=== PATIENT | female | born 1995 | race Hispanic/Latino ===

== ENCOUNTER 2017-07-19 23:53 | Observation (INO) | payer MEDICAID ==
[~2017-07-19] VITALS: Ht 162.6 cm; Wt 67.6 kg
[2017-07-20 00:38] LABS: BILIRUBIN,URINE Negative (NEGATIVE); GLUCOSE, URINE (UA) Negative (NEGATIVE); KETONES,URINE Negative (NEGATIVE); LEUKOCYTE ESTERASE ,URINE Negative (NEGATIVE); NITRATE,URINE Negative (NEGATIVE); OCCULT BLOOD,URINE Large (NEGATIVE); PROTEIN,URINE POS 1+ (NEGATIVE); UROBILINOGEN,URINE 0.2 mg/dL (0.2-1.0)
[2017-07-20 00:41] LABS: APPEARANCE,URINE TURBID (CLEAR); COLOR,URINE RED (YELLOW)
[2017-07-20 00:42] LABS: BACTERIA,URINE Rare /HPF (None Seen); MUCUS,URINE Few LPF (None Seen); RBC,URINE TNTC /HPF (0-1); SQUAMOUS EPITHELIAL CELL,UR Few /LPF (0-2)
[2017-07-20] MEDS ORDERED: MAGNESIUM SULFATE 1,000 ML IV PRN (00:58)
[2017-07-20] MEDS ORDERED: MAGNESIUM 4GM PREMIX 100ML 100 ML IV SCH (01:00)
[2017-07-20] MEDS ORDERED: MEPERIDINE-PF 25 MG/ML SYG IVP PRN (01:00)
[2017-07-20] MEDS ORDERED: CALCIUM GLUCONATE 1 GM/10 ML VIAL IV PRN (01:00)
[2017-07-20] MEDS ORDERED: MAGNESIUM 4GM PREMIX 100ML 100 ML IV ONE (01:25)
[2017-07-20] MEDS ORDERED: AMPICILLIN 2GM+NS 100ML 100 ML IV ONE (01:26)
[2017-07-20] MEDS ORDERED: MAGNESIUM SULFATE 1,000 ML IV ONE (01:26)
[2017-07-20] MEDS ORDERED: MEPERIDINE-PF 25 MG/ML SYG ONE (01:53)
[2017-07-20 03:22] LABS: HEMATOCRIT 28.5 % (36-48); MEAN CORPUSCULAR HEMOGLOBIN 22.1 pg (27.0-33.0); MEAN CORPUSCULAR HGB CONC 32.6 g/dL (32.0-36.0); MEAN CORPUSCULAR VOLUME 67.8 fL (79-99); NUCLEATED RED BLOOD CELLS 0.1 % (0.0-0.19); PLATELET COUNT (AUTO) 160 K/uL (130-400); RED BLOOD CELL COUNT(AUTO) 4.21 MIL/uL (4.00-5.50); RED CELL DISTRIBUTION WIDTH 17.2 % (11.0-15.5); WHITE BLOOD COUNT (AUTO) 8.8 K/uL (4.8-10.8)
[2017-07-20 04:22] LABS: AMPHET/METH SCREEN,URINE NEGATIVE (NEGATIVE); BARBITURATE SCREEN, URINE NEGATIVE (NEGATIVE); BENZODIAZEPINES SCREEN,URINE NEGATIVE (NEGATIVE); CANNABINOID SCREEN,URINE NEGATIVE (NEGATIVE); COCAINE SCREEN,URINE NEGATIVE (NEGATIVE); OPIATE SCREEN,URINE NEGATIVE (NEGATIVE); PHENCYCLIDINE SCREEN,URINE NEGATIVE (NEGATIVE)
[2017-07-20] MEDS ORDERED: ACETAMINOPHEN-CODEINE 300/30MG TAB PO PRN (06:45)
[2017-07-20] MEDS: AMPICILLIN 2GM+NS 100ML 100 ML IV SCH ×2 (07:49→20:42)
[2017-07-20] MEDS ORDERED: CEFTRIAXONE 1GM/D5W 50ML 50 ML IV SCH (08:00)
[2017-07-20] MEDS ORDERED: PROMETHAZINE HCL 25 MG/ML 1ML AMPULE IM PRN (08:00)
[2017-07-20] MEDS ORDERED: ACETAMINOPHEN EXTRA STRENGTH 500 MG TABLET PO PRN (08:15)
[2017-07-20] MEDS ORDERED: PROMETHAZINE HCL 25 MG/ML 1ML AMPULE IM ONE (08:42)
[2017-07-20] MEDS ORDERED: CEFTRIAXONE SODIUM 1 GM IV SCH (09:00)
[2017-07-20 10:15] LABS: RAPID PLASMA REAGIN NONREACTIVE (NONREACTIVE)
[2017-07-20 10:47] LABS: ALBUMIN 2.3 g/dL (3.5-5.0); BILIRUBIN,DIRECT 0.2 mg/dL (0.0-0.3); BILIRUBIN,TOTAL 0.4 mg/dL (0.2-1.0); TOTAL PROTEIN, SERUM 7.1 g/dL (6.0-8.3)
[2017-07-20] MEDS: LACTATED RINGERS 1000ML 1,000 ML IV SCH (10:51)
[2017-07-20 12:07] LABS: HEMATOCRIT 26.7 % (36-48)
[2017-07-20] MEDS ORDERED: MEPERIDINE-PF 50 MG/ML SYG IVP SCH (18:30)
[2017-07-20] MEDS ORDERED: MEPERIDINE-PF 50 MG/ML SYG ONE (18:37)
[2017-07-21] MEDS: LACTATED RINGERS 1000ML 1,000 ML IV SCH (02:55)
[2017-07-21] MEDS: AMPICILLIN 2GM+NS 100ML 100 ML IV SCH ×2 (02:56→09:16)
[2017-07-21 11:14] LABS: HEPATITIS Bs ANTIGEN SCREEN P Negative (Negative)
== END 2017-07-21 13:38 | disposition home or self-care (01) ==
LOC: EDH 23:53 → LDH 23:54 → UNDODISOB 07-21 09:54
PROVIDERS: ADMIT Obstetrics & Gynecology; ATTEND Obstetrics & Gynecology
DX: O62.9 Abnormality of forces of labor, unspecified (principal); Z3A.35 35 weeks gestation of pregnancy
CPT/HCPCS: 36415; 76700; 80076; 80305; 81001; 82150; 83690; 85027; 86592; 86701; 86850; 86900; 86901; 87088; 87340; 87390; 96361; 96365; 96372; 96375; 96376; 99285; A4314; G0378 ×38; J0290 ×6; J0696; J2175 ×3; J2550 ×2; J3475 ×3; J7120

== ENCOUNTER 2017-08-14 21:38 | Inpatient (IN) | payer MEDICAID ==
[~2017-08-14] VITALS: Ht 157.5 cm; Wt 72.1 kg
[2017-08-14] MEDS ORDERED: LACTATED RINGERS 1000ML 1,000 ML IV PRN (22:06)
[2017-08-14 22:11] LABS: APPEARANCE,URINE Clear (CLEAR); BILIRUBIN,URINE Negative (NEGATIVE); COLOR,URINE Dark Yellow (YELLOW); GLUCOSE, URINE (UA) Negative (NEGATIVE); KETONES,URINE Negative (NEGATIVE); LEUKOCYTE ESTERASE ,URINE Moderate (NEGATIVE); NITRATE,URINE Negative (NEGATIVE); OCCULT BLOOD,URINE Negative (NEGATIVE); PROTEIN,URINE Negative (NEGATIVE)
[2017-08-14 22:20] LABS: AMPHET/METH SCREEN,URINE NEGATIVE (NEGATIVE); BARBITURATE SCREEN, URINE NEGATIVE (NEGATIVE); BENZODIAZEPINES SCREEN,URINE NEGATIVE (NEGATIVE); CANNABINOID SCREEN,URINE NEGATIVE (NEGATIVE); COCAINE SCREEN,URINE NEGATIVE (NEGATIVE); OPIATE SCREEN,URINE NEGATIVE (NEGATIVE); PHENCYCLIDINE SCREEN,URINE NEGATIVE (NEGATIVE)
[2017-08-14 22:23] LABS: HEMATOCRIT 31.3 % (36-48); MEAN CORPUSCULAR HEMOGLOBIN 21.5 pg (27.0-33.0); MEAN CORPUSCULAR HGB CONC 33.1 g/dL (32.0-36.0); PLATELET COUNT (AUTO) 217 K/uL (130-400); RED BLOOD CELL COUNT(AUTO) 4.81 MIL/uL (4.00-5.50); RED CELL DISTRIBUTION WIDTH 18.6 % (11.0-15.5); WHITE BLOOD COUNT (AUTO) 9.4 K/uL (4.8-10.8)
[2017-08-14] MEDS ORDERED: LACTATED RINGERS 1000ML 1,000 ML IV ONE (22:23)
[2017-08-14] MEDS ORDERED: AMPICILLIN 2GM+NS 100ML 100 ML IV ONE (22:23)
[2017-08-14] MEDS ORDERED: OXYTOCIN 10 USP UNITS/ML ONE (22:30)
[2017-08-14 22:34] LABS: BACTERIA,URINE Moderate /HPF (None Seen); RBC,URINE 0-1 /HPF (0-1)
[2017-08-14 22:35] VITALS: BP 126/77
[2017-08-14 22:35] LABS: MUCUS,URINE Moderate LPF (None Seen); SQUAMOUS EPITHELIAL CELL,UR Moderate /LPF (0-2)
[2017-08-14] MEDS ORDERED: NALOXONE HCL 0.4 MG/1 ML ML IV PRN (22:45)
[2017-08-14] MEDS ORDERED: AMPICILLIN 2GM+NS 100ML 100 ML IV SCH (22:45)
[2017-08-14] MEDS ORDERED: EPHEDRINE SULFATE 50 MG/ML AMPULE IVP PRN (22:45)
[2017-08-14] MEDS ORDERED: ROPIVACAINE 0.2%200ML EPIDURAL 200 ML EP SCH (22:45)
[2017-08-14] MEDS ORDERED: LACTATED RINGERS 500 ML 500 ML IV PRN (22:45)
[2017-08-15] VITALS (12 sets, daily range): BP systolic 108–136; BP diastolic 62–95
[2017-08-15] MEDS: OXYTOCIN-LR 20 UNITS/1000 ML 1,000 ML IV SCH ×2 (01:06→05:23)
[2017-08-15] MEDS ORDERED: WITCH HAZEL 1 PAD TP PRN (01:30)
[2017-08-15] MEDS ORDERED: MEASLES/MUMPS/RUBELLA VACCINE, LIVE 0.5 ML/VIAL SQ PRN (01:30)
[2017-08-15] MEDS ORDERED: LANOLIN 30GM OINTMENT TP PRN (01:30)
[2017-08-15] MEDS ORDERED: BENZOCAINE/LANOLIN/ALOE VERA 60 ML AEROSOL TP PRN (01:30)
[2017-08-15] MEDS ORDERED: DIPH,PERTUSS(ACELL),TET VAC/PF 0.5 ML VIAL IM PRN (01:30)
[2017-08-15] MEDS ORDERED: ACETAMINOPHEN-CODEINE 300/30MG TAB PO PRN (01:30)
[2017-08-15] MEDS ORDERED: ACETAMINOPHEN 325 MG TAB PO PRN (01:30)
[2017-08-15] MEDS ORDERED: HYDROCODONE/ACETAMINOPHEN 5/325 MG TAB PO PRN (01:30)
[2017-08-15] MEDS ORDERED: IBUPROFEN 600 MG TABLET ONE (01:40)
[2017-08-15] MEDS ORDERED: AMPICILLIN 1GM+NS 50ML 50 ML IV SCH (02:45)
[2017-08-15] MEDS ORDERED: OXYTOCIN 10 USP UNITS/ML ONE (05:20)
[2017-08-15 08:12] LABS: RAPID PLASMA REAGIN NONREACTIVE (NONREACTIVE)
[2017-08-15] MEDS: DOCUSATE SODIUM 100 MG CAP PO SCH ×2 (10:01→21:09)
[2017-08-15] MEDS: IBUPROFEN 800 MG TAB PO PRN ×2 (10:04→18:35)
[2017-08-15] MEDS ORDERED: BISACODYL 10 MG SUPP.RECT RC ONE (14:50)
[2017-08-16 03:25] VITALS: BP 131/76
[2017-08-16 05:38] LABS: HEMATOCRIT 25.6 % (36-48); MEAN CORPUSCULAR HEMOGLOBIN 21.1 pg (27.0-33.0); MEAN CORPUSCULAR HGB CONC 31.8 g/dL (32.0-36.0); MEAN CORPUSCULAR VOLUME 66.2 fL (79-99); NUCLEATED RED BLOOD CELLS 0.1 % (0.0-0.19); PLATELET COUNT (AUTO) 230 K/uL (130-400); RED BLOOD CELL COUNT(AUTO) 3.86 MIL/uL (4.00-5.50); RED CELL DISTRIBUTION WIDTH 18.6 % (11.0-15.5); WHITE BLOOD COUNT (AUTO) 8.8 K/uL (4.8-10.8)
[2017-08-16 07:30] LABS: HEPATITIS Bs ANTIGEN SCREEN P Negative (Negative)
[2017-08-16 07:48] VITALS: BP 102/67
[2017-08-16] MEDS: DOCUSATE SODIUM 100 MG CAP PO SCH (09:02)
[2017-08-16] MEDS: IBUPROFEN 800 MG TAB PO PRN (09:03)
[2017-08-16 11:33] VITALS: BP 113/63
[2017-08-16] MEDS ORDERED: FERS325 PO (11:56)
[2017-08-16] MEDS ORDERED: IBUP-2076 PO (11:57)
[2017-08-16] MEDS ORDERED: MEASLES/MUMPS/RUBELLA VACCINE, LIVE 0.5 ML/VIAL SQ SCH (12:48)
== END 2017-08-16 13:50 | disposition home or self-care (01) | DRG 560 ==
LOC: EDH 21:38 → OBSVTOIN 21:39 → LDH 21:39 → WSH 08-15 01:50
PROVIDERS: ADMIT Obstetrics & Gynecology; ATTEND Obstetrics & Gynecology
PROC: 10E0XZZ Delivery of Products of Conception, External Approach (ICD-10-PCS; principal; 2017-08-15)
PROC: 10E0XZZ Delivery of Products of Conception, External Approach (ICD-10-PCS; 2017-08-15)
PROC: 3E0R3BZ Introduction of Anesthetic Agent into Spinal Canal, Percutaneous Approach (ICD-10-PCS; 2017-08-15)
PROC: 00HU33Z Insertion of Infusion Device into Spinal Canal, Percutaneous Approach (ICD-10-PCS; 2017-08-15)
PROC: 3E0234Z Introduction of Serum, Toxoid and Vaccine into Muscle, Percutaneous Approach (ICD-10-PCS; 2017-08-16)
DX: O77.0 Labor and delivery complicated by meconium in amniotic fluid (principal); Z23 Encounter for immunization; Z37.0 Single live birth; Z3A.39 39 weeks gestation of pregnancy
CPT/HCPCS: 36415; 76805; 80305; 81001; 85027; 86592; 86701; 86850; 86900; 86901; 87340; 87390; 90707; A4314; J0290; J2590; J7120

== ENCOUNTER 2018-06-16 22:14 | Emergency (ER) | payer MEDICAID, OTHER ==
[~2018-06-16 22:14] MED LIST: FERS325 PO; IBUP-2076 PO
[2018-06-16] MEDS ORDERED: IBUPROFEN 600 MG TABLET ONE (23:35)
[2018-06-16] MEDS ORDERED: TETANUS/DIPHTHERIA TOXOID [ADULT] 0.5 ML VIAL IM ONE (23:36)
== END 2018-06-16 23:47 | disposition home or self-care (01) ==
LOC: EDH 22:14
DX: S80.02XA Contusion of left knee, initial encounter (principal); S80.01XA Contusion of right knee, initial encounter; S60.512A Abrasion of left hand, initial encounter; S60.511A Abrasion of right hand, initial encounter; F32.9 Major depressive disorder, single episode, unspecified; F41.9 Anxiety disorder, unspecified; Z87.442 Personal history of urinary calculi; W18.39XA Other fall on same level, initial encounter; Y93.89 Activity, other specified; Y92.89 Other specified places as the place of occurrence of the external cause; Y99.8 Other external cause status
CPT/HCPCS: 73562; 90471; 90714

== ENCOUNTER 2018-08-09 23:42 | Emergency (ER) | payer OTHER ==
[2018-08-10 00:46] LABS: BASOPHILS % (AUTO) 0.9 % (0.0-5.0); EOSINOPHILS % (AUTO) 1.4 % (0.0-8.0); HEMATOCRIT 37.9 % (36-48); LYMPHOCYTES % (AUTO) 24.4 % (21.0-51.0); MEAN CORPUSCULAR HEMOGLOBIN 26.9 pg (27.0-33.0); MEAN CORPUSCULAR HGB CONC 34.3 g/dL (32.0-36.0); MEAN CORPUSCULAR VOLUME 78.6 fL (79-99); MONOCYTES % (AUTO) 9.1 % (3.0-13.0); NEUTROPHILS % (AUTO) 64.2 % (40.0-77.0); NUCLEATED RED BLOOD CELLS 0.1 % (0.0-0.19); PLATELET COUNT (AUTO) 305 K/uL (130-400); RED BLOOD CELL COUNT(AUTO) 4.82 MIL/uL (4.00-5.50); RED CELL DISTRIBUTION WIDTH 16.1 % (11.0-15.5)
[2018-08-10 00:47] LABS: APPEARANCE,URINE Cloudy (CLEAR); BACTERIA,URINE Few /HPF (None Seen); BILIRUBIN,URINE Negative (NEGATIVE); COLOR,URINE Yellow (YELLOW); GLUCOSE, URINE (UA) Negative (NEGATIVE); KETONES,URINE Negative (NEGATIVE); LEUKOCYTE ESTERASE ,URINE Moderate (NEGATIVE); MUCUS,URINE Moderate LPF (None Seen); NITRATE,URINE Negative (NEGATIVE); OCCULT BLOOD,URINE Large (NEGATIVE); PROTEIN,URINE POS 1+ (NEGATIVE); SQUAMOUS EPITHELIAL CELL,UR Many /HPF (0-2)
== END 2018-08-10 01:26 | disposition home or self-care (01) ==
LOC: EDH 23:53
DX: O20.0 Threatened abortion (principal); O99.341 Other mental disorders complicating pregnancy, first trimester; F41.8 Other specified anxiety disorders; F32.9 Major depressive disorder, single episode, unspecified; Z87.442 Personal history of urinary calculi; Z3A.01 Less than 8 weeks gestation of pregnancy
CPT/HCPCS: 36415; 76801; 81001; 84702; 85025

== ENCOUNTER 2018-12-10 17:45 | Emergency (ER) | payer SELFPAY ==
[2018-12-10 18:16] LABS: APPEARANCE,URINE Cloudy (CLEAR); BILIRUBIN,URINE Negative (NEGATIVE); COLOR,URINE Dark Yellow (YELLOW); GLUCOSE, URINE (UA) Negative (NEGATIVE); KETONES,URINE 15 mg/dL (NEGATIVE); LEUKOCYTE ESTERASE ,URINE Small (NEGATIVE); NITRATE,URINE Negative (NEGATIVE); OCCULT BLOOD,URINE Negative (NEGATIVE); PH,URINE 6.5 (5.0-8.0); PROTEIN,URINE Trace mg/dL (NEGATIVE)
[2018-12-10 18:20] LABS: HCG,QUAL RESULT NEGATIVE (NEGATIVE)
[2018-12-10 18:24] LABS: BACTERIA,URINE Few /HPF (None Seen); MUCUS,URINE Moderate LPF (None Seen); RBC,URINE None Seen /HPF (0-1)
[2018-12-10] MEDS ORDERED: AMOXICILLIN/POTASSIUM CLAV 875-125 TABLET PO ONE (18:31)
[2018-12-10] MEDS ORDERED: KETOROLAC TROMETHAMINE 60 MG/2 ML VIAL ONE (18:31)
== END 2018-12-10 19:04 | disposition home or self-care (01) ==
LOC: EDH 17:45
DX: N39.0 Urinary tract infection, site not specified (principal); M54.5 Low back pain; J03.90 Acute tonsillitis, unspecified; F32.9 Major depressive disorder, single episode, unspecified; F41.9 Anxiety disorder, unspecified; Z87.442 Personal history of urinary calculi; Z87.898 Personal history of other specified conditions
CPT/HCPCS: 81001; 81025; 96372; 99284; J1885

== ENCOUNTER 2020-04-21 22:23 | Emergency (ER) | payer SELFPAY ==
[2020-04-21 23:08] LABS: BASOPHILS % (AUTO) 0.3 % (0.0-5.0); EOSINOPHILS % (AUTO) 0.9 % (0.0-8.0); HEMATOCRIT 40.6 % (36-48); LYMPHOCYTES % (AUTO) 30.6 % (21.0-51.0); MEAN CORPUSCULAR HEMOGLOBIN 27.8 pg (27.0-33.0); MEAN CORPUSCULAR HGB CONC 34.2 g/dL (32.0-36.0); MEAN CORPUSCULAR VOLUME 81.2 fL (79-99); MONOCYTES % (AUTO) 9.9 % (3.0-13.0); PLATELET COUNT (AUTO) 306 K/uL (130-400); RED CELL DISTRIBUTION WIDTH 14.6 % (11.0-15.5); WHITE BLOOD COUNT (AUTO) 9.5 K/uL (4.8-10.8)
[2020-04-21 23:22] LABS: CREATININE 0.6 mg/dL (0.5-1.5); POTASSIUM 4.4 mmol/L (3.5-5.1)
[2020-04-21 23:24] LABS: APPEARANCE,URINE Turbid (CLEAR); BILIRUBIN,URINE Negative (NEGATIVE); COLOR,URINE Yellow (YELLOW); GLUCOSE, URINE (UA) Negative (NEGATIVE); KETONES,URINE Negative (NEGATIVE); LEUKOCYTE ESTERASE ,URINE Moderate (NEGATIVE); NITRATE,URINE Negative (NEGATIVE); OCCULT BLOOD,URINE Negative (NEGATIVE); PH,URINE 7.5 (5.0-8.0); PROTEIN,URINE Trace mg/dL (NEGATIVE)
[2020-04-21 23:26] LABS: ALBUMIN 3.9 g/dL (3.5-5.0); BILIRUBIN,TOTAL 0.4 mg/dL (0.2-1.0); TOTAL PROTEIN, SERUM 8.6 g/dL (6.0-8.3)
[2020-04-21] MEDS ORDERED: ONDANSETRON HCL 4 MG/2 ML VIAL ONE (23:31)
[2020-04-21] MEDS ORDERED: METOCLOPRAMIDE 10 MG/2 ML VIAL ONE (23:31)
[2020-04-21 23:40] LABS: RBC,URINE 0-1 /HPF (0-1)
[2020-04-21 23:41] LABS: BACTERIA,URINE Few /HPF (None Seen)
[2020-04-21] MEDS ORDERED: IOHEXOL-350 75 ML VIAL IV ONE (23:43)
[2020-04-22] MEDS ORDERED: HYOSCYAMINE SULFATE 0.125 MG TAB.SUBL SL ONE (00:48)
[2020-04-22] MEDS ORDERED: LEVOFLOXACIN 500 MG TABLET ONE (00:48)
[2020-04-22] MEDS ORDERED: DICYCLOMINE HCL 20 MG TAB ONE (00:52)
== END 2020-04-22 01:09 | disposition home or self-care (01) ==
LOC: EDH 22:23
DX: E86.0 Dehydration (principal); R10.32 Left lower quadrant pain; R19.7 Diarrhea, unspecified; F41.9 Anxiety disorder, unspecified; F32.9 Major depressive disorder, single episode, unspecified
CPT/HCPCS: 36415; 74177; 80053; 81001; 81025; 83690; 85025; 87088; 96361; 96374; 96375; 99285; J2405; J2765; Q9967

== ENCOUNTER 2020-06-01 02:24 | Emergency (ER) | payer MEDICAID, OTHER ==
[2020-06-01] MEDS ORDERED: ONDANSETRON HCL 4 MG/2 ML VIAL ONE (03:08)
[2020-06-01] MEDS ORDERED: MORPHINE SULFATE 4 MG/1ML SYG ONE (03:08)
[2020-06-01 03:09] LABS: BASOPHILS % (AUTO) 0.3 % (0.0-5.0); EOSINOPHILS % (AUTO) 0.6 % (0.0-8.0); HEMATOCRIT 39.8 % (36-48); MEAN CORPUSCULAR HEMOGLOBIN 28.1 pg (27.0-33.0); MEAN CORPUSCULAR HGB CONC 34.9 g/dL (32.0-36.0); MEAN CORPUSCULAR VOLUME 80.6 fL (79-99); MONOCYTES % (AUTO) 6.3 % (3.0-13.0); NEUTROPHILS % (AUTO) 72.4 % (40.0-77.0); PLATELET COUNT (AUTO) 299 K/uL (130-400); RED BLOOD CELL COUNT(AUTO) 4.94 MIL/uL (4.00-5.50); RED CELL DISTRIBUTION WIDTH 13.9 % (11.0-15.5); WHITE BLOOD COUNT (AUTO) 10.9 K/uL (4.8-10.8)
[2020-06-01 03:12] LABS: APPEARANCE,URINE Clear (CLEAR); BILIRUBIN,URINE Negative (NEGATIVE); COLOR,URINE Yellow (YELLOW); GLUCOSE, URINE (UA) Negative (NEGATIVE); KETONES,URINE Negative (NEGATIVE); LEUKOCYTE ESTERASE ,URINE Negative (NEGATIVE); NITRATE,URINE Negative (NEGATIVE); OCCULT BLOOD,URINE Trace (NEGATIVE); PROTEIN,URINE Negative (NEGATIVE); UROBILINOGEN,URINE 0.2 mg/dL (0.2-1.0)
[2020-06-01 03:17] LABS: HCG,QUAL RESULT POSITIVE (NEGATIVE)
[2020-06-01 03:24] LABS: ALBUMIN 4.2 g/dL (3.5-5.0); BILIRUBIN,TOTAL 0.4 mg/dL (0.2-1.0); POTASSIUM 3.9 mmol/L (3.5-5.1); TOTAL PROTEIN, SERUM 8.8 g/dL (6.0-8.3)
[2020-06-01 03:27] LABS: CREATININE 0.6 mg/dL (0.5-1.5)
[2020-06-01] MEDS ORDERED: FAMOTIDINE/PF 20 MG/2 ML VIAL IV ONE (03:54)
[2020-06-01] MEDS ORDERED: HYDROMORPHONE HCL 0.5 MG/0.5 ML ML ONE (03:54)
== END 2020-06-01 05:56 | disposition home or self-care (01) ==
LOC: EDH 02:24
DX: O99.611 Diseases of the digestive system complicating pregnancy, first trimester (principal); K80.20 Calculus of gallbladder without cholecystitis without obstruction; Z3A.01 Less than 8 weeks gestation of pregnancy
CPT/HCPCS: 36415; 76705; 76801; 80053; 81003; 81025; 83690; 85025; 96374; 96375; 99285; J1170; J2270; J2405; J3490

== ENCOUNTER 2021-09-11 21:30 | Observation (INO) | payer MEDICAID ==
[~2021-09-11] VITALS: Ht 157.5 cm; Wt 81.6 kg
[2021-09-11 21:36] VITALS: BP 125/51
[2021-09-11] MEDS ORDERED: LACTATED RINGERS 1000ML IV PRN (22:00)
[2021-09-11 22:04] LABS: APPEARANCE,URINE Cloudy (CLEAR); BILIRUBIN,URINE Small (NEGATIVE); COLOR,URINE Dark Yellow (YELLOW); GLUCOSE, URINE (UA) Negative (NEGATIVE); KETONES,URINE Trace mg/dL (NEGATIVE); LEUKOCYTE ESTERASE ,URINE Trace (NEGATIVE); NITRATE,URINE Negative (NEGATIVE); OCCULT BLOOD,URINE Small (NEGATIVE); PROTEIN,URINE POS 1+ mg/dL (NEGATIVE)
[2021-09-11 22:12] LABS: AMPHET/METH SCREEN,URINE NEGATIVE (NEGATIVE); BARBITURATE SCREEN, URINE NEGATIVE (NEGATIVE); BENZODIAZEPINES SCREEN,URINE NEGATIVE (NEGATIVE); CANNABINOID SCREEN,URINE NEGATIVE (NEGATIVE); COCAINE SCREEN,URINE NEGATIVE (NEGATIVE); OPIATE SCREEN,URINE NEGATIVE (NEGATIVE); PHENCYCLIDINE SCREEN,URINE NEGATIVE (NEGATIVE)
[2021-09-11 22:14] LABS: BACTERIA,URINE Few /HPF (None Seen); MUCUS,URINE Moderate LPF (None Seen); SQUAMOUS EPITHELIAL CELL,UR Moderate /HPF (0-2)
== END 2021-09-11 23:00 | disposition home or self-care (01) ==
LOC: EDH 21:30 → UNDOADMOB 21:45 → LDH 21:45
PROVIDERS: ADMIT Obstetrics & Gynecology; ATTEND Obstetrics & Gynecology
DX: O26.892 Other specified pregnancy related conditions, second trimester (principal); R10.2 Pelvic and perineal pain; R12 Heartburn; O21.2 Late vomiting of pregnancy; Z3A.25 25 weeks gestation of pregnancy; Z79.899 Other long term (current) drug therapy
CPT/HCPCS: 59025; 80305; 81001; G0378; G0379

== ENCOUNTER 2024-08-23 00:37 | Emergency (ER) | payer SELFPAY ==
[~2024-08-23] VITALS: Ht 157.5 cm; Wt 82.2 kg
--- NOTE | 2024-08-23 00:42 | NUR ---
UA CUP PROVIDED
[2024-08-23] MEDS: DiphenhydrAMINE HCL 25 MG/10 ML ELIXIR UDCUP PO STA (01:11)
[2024-08-23] MEDS: predniSONE 20 MG TABLET PO STA (01:11)
[2024-08-23] MEDS: FAMOTIDINE 20MG TAB PO STA (01:11)
[2024-08-23] MEDS ORDERED: PRED20TA3 PO (02:07)
[2024-08-23] MEDS ORDERED: DIPH25TA51 PO (02:07)
--- NOTE | 2024-08-23 02:10 | ERN ---
ED Note History of Present Illness Stated Complaint: RED BUMPS, ITCHING Chief Complaint: Skin Rash/Abscess Time Seen by MD: 00:39 Time Seen by Midlevel: 00:39 Dictation: 29-year-old female presents to the ED for evaluation of rashes he had for the past two days. Patient reports associated itchiness. Denies shortness of breath, nausea, vomiting, diarrhea, difficulty breathing. Reports she has not taken any medications. Denies possible known allergies. No new detergents, foods. Denies any known insect bites. Allergies: Coded Allergies: No Known Allergies (Verified Allergy, Unknown, 07/20/17) No Known Drug Allergies (Unverified Allergy, Unknown, 07/20/17) Home Meds Active Scripts Prednisone (Prednisone) 20 Mg Tablet, 40 MG PO DAILY for 5 Days, #10 TAB Prov:OTILIA MCGUIRE 08/23/24 Diphenhydramine HCl (Benadryl Allergy) 25 Mg Tablet, 25 MG PO Q6HPRN, #15 TAB Prov:OTILIA MCGUIRE 08/23/24 Reported Medications Ibuprofen (Ibuprofen) 400 Mg Tablet, 400 MG PO Q4-6 for PAIN LEVEL 2 TO 5, #30 TAB 08/16/17 Ferrous Sulfate (Ferrous Sulfate) 325 Mg Ectab, 325 MG PO BID PRN for ANEMIA, #60 TAB.EC 1 Refill 08/16/17 Past Medical History Past Medical History: No Pertinent History Surgical History: None LMP: Aug 19, 2024 : 8 Para: 6 Aborts: 2 Review of System Dictation Constitutional: Negative for fever,chills, and weight loss Eyes: Negative for injury, pain,redness, and discharge ENT: Negative for injury,pain or swelling Cardiovascular: Negative for chest pain, palpitations, and edema Respiratory: Negative for shortness of breath, cough, and wheezing, Abdomen/GI: Negative for abdominal pain, nausea, vomiting, diarrhea, and constipation Back: Negative for injury and pain : Negative for injury, bleeding and discharge MS/Extremity: Negative for injury and deformity Skin: Negative for discoloration Neuro: Negative for headache, weakness, numbness, tingling, and seizure Psych: Negative for suicide ideation, homicidal ideation, and hallucinations Review of Systems: was completed Initial Vital Sign VS Vital Signs Date Time Temp Pulse Resp B/P (MAP) Pulse Ox O2 Delivery O2 Flow Rate FiO2 08/23/24 00:39 98.2 87 16 138/87 99 Room Air Physical Exam Dictation General: awake, alert, NAD Head/Face: Normocephalic, atraumatic Eyes: PERRL, EOMI, vision at baseline ENT: oral cavity clear, TMs clear, no signs of infection Neck: Trachea midline, supple, no nuchal rigidity Cardiovascular: RRR, normal S1/S2, No MRGs, no JVD Respiratory: CTAB, no respiratory distress, No rales or wheezes Abdomen: Soft, non-tender, non-distended, normal bowel sounds, no guarding or rebound. Skin: Warm, dry, normal turgor, maculopapular rash MS/Extremity: Pulses equal, no cyanosis, neurovascular intact, FROM Neuro: COAx4, GCS 15, strength 5/5, CN 2-12 intact, normal cerebellar exam, normal gait, Psych: Normal behavior, mood, and affect normal ED Course ED Course Orders Procedure Category Date Status Time Diphenhydramine Hcl PHA 08/23/24 Complete (Benadryl Elixir) 00:48 Famotidine 20mg Tab PHA 08/23/24 Complete (Pepcid 20mg Tab) 00:48 Prednisone 20mg Tab PHA 08/23/24 Complete (Deltasone/Orasone 2 00:48 Current Medications Medications (Trade) Dose Ordered Sig/Christian Route PRN Reason Start Time Stop Time Status Last Admin Dose Admin Diphenhydramine HCl (BENAdryl ELIXIR) 25 mg ONCE STAT PO 08/23/24 00:48 08/23/24 00:50 DC 08/23/24 01:11 Famotidine (Pepcid 20mg Tab) 20 mg ONCE STAT PO 08/23/24 00:48 08/23/24 00:50 DC 08/23/24 01:11 Prednisone (deltaSONE/ oraSONE 20MG TAB) 40 mg ONCE STAT PO 08/23/24 00:48 08/23/24 00:50 DC 08/23/24 01:11 Vital Signs Date Time Temp Pulse Resp B/P (MAP) Pulse Ox O2 Delivery O2 Flow Rate FiO2 08/23/24 00:39 98.2 87 16 138/87 99 Room Air Medical Decision Making MDM MDM: Differential diagnosis: Need for hospitalization: Patient does meet criteria for hospitalization. Need for emergency major/minor surgery: No I independently interpreted the test that were performed, results were reviewed by me and considered findings on radiology if ordered. Medical management and examination interpretation discussions were had by me with other qualified healthcare professionals as indicated for the patient's c are. This patient presents with symptoms consistent with acute hypersensitivity reaction, likely acute allergic reaction. Presentation not consistent with acute anaphylaxis (lack of pulmonary, dermatologic, cardiovascular or GI symptoms, lack of hypotension or exposure to known allergen), angioedema, serum sickness (no recent drug exposure, lacks fevers, arthralgias). No evidence of airway compromise or shock at this time. Patient improved with H1/H2 blockers, steroids. No need for epinephrine. Patient will be discharged home with Benadryl prednisone. Recommended follow up with PCP. Return precautions discussed with patient. Patient verbalized understanding, agreed with plan, and all questions were answered at this time DX & DISP Disposition: Discharge Departure Impression: Primary Impression: Rash Condition: Stable Scripts Prednisone (Prednisone) 20 Mg Tablet 40 MG PO DAILY for 5 Days, #10 TAB Prov: OTILIA MCGUIRE 08/23/24 Diphenhydramine HCl (Benadryl Allergy) 25 Mg Tablet 25 MG PO Q6HPRN, #15 TAB Prov: OTILIA MCGUIRE 08/23/24 Additional Instructions: DISCHARGE HOME. REST. FOLLOW UP WITH PRIMARY CARE IN 24 HOURS. RETURN TO THE ER FOR ANY ACUTE CHANGE. PATIENT WAS ALSO ADVISED TO FOLLOW-UP WITH PRIMARY CARE PHYSICIAN IN 1 TO 2 DAYS FOR CONTINUED MONITORING. ALL INSTRUCTIONS WERE GIVEN TO LAYMANS TERM AND PATIENT AGREEABLE TO DISCHARGE AND PROPER FOLLOW-UP. Referrals: SELF,REFERRAL (PCP) I have reviewed the case, and I agree with, Diagnosis and Plan OTILIA MCGUIRE Aug 23, 2024 02:10
[2024-08-23 02:18] VITALS: BP 142/72; PULSE 86; RESP 18; TEMP 98.4; O2SAT 98
== END 2024-08-23 02:21 | disposition home or self-care (01) ==
LOC: EDH 00:37
DX: R21 Rash and other nonspecific skin eruption (principal); Z79.52 Long term (current) use of systemic steroids; Z79.899 Other long term (current) drug therapy
CPT/HCPCS: 99284